=== PATIENT | female | born 1980 | race Two or more races ===

== ENCOUNTER 2018-11-23 10:57 | Outpatient (CLI) | payer OTHER | END 2018-11-23 14:24 | disposition home or self-care (01) | LOC: LDOP 10:57 | PROVIDERS: ATTEND Obstetrics & Gynecology | DX: O09.513 Supervision of elderly primigravida, third trimester (principal); O32.1XX0 Maternal care for breech presentation, not applicable or unspecified; O36.8130 Decreased fetal movements, third trimester, not applicable or unspecified; O35.8XX0 Maternal care for other (suspected) fetal abnormality and damage, not applicable or unspecified; Z3A.35 35 weeks gestation of pregnancy | CPT/HCPCS: 59025; 76819; 82962; 99201; G0463 ==